=== PATIENT | female | born 1990 ===

== ENCOUNTER 2019-09-16 22:13 | Emergency (ER) | payer OTHER ==
[~2019-09-16] VITALS: Ht 172.7 cm; Wt 65.8 kg
[2019-09-17] MEDS ORDERED: PHENERGAN25 MG PO (02:37)
[2019-09-17] MEDS ORDERED: PEPCID40 MG PO (02:37)
[2019-09-17] MEDS ORDERED: PHENAGIL CH TA1 EACH PO (02:37)
[2019-09-17] MEDS ORDERED: OSEL75CA PO (02:37)
== END 2019-09-17 02:41 ==
LOC: ER 22:13
DX: J06.9 Acute upper respiratory infection, unspecified (principal); R10.13 Epigastric pain; R11.2 Nausea with vomiting, unspecified

== ENCOUNTER 2020-12-09 09:49 | Outpatient (CLI) | payer OTHER ==
[~2020-12-09 09:49] MED LIST: OSEL75CA PO; PEPCID40 MG PO; PHENAGIL CH TA1 EACH PO; PHENERGAN25 MG PO
== END 2020-12-09 09:53 | disposition home or self-care (01) ==
LOC: RAD 09:49
PROVIDERS: ATTEND Specialist
DX: M43.8X4 Other specified deforming dorsopathies, thoracic region (principal); M54.5 Low back pain

== ENCOUNTER 2024-01-02 14:41 | Outpatient (CLI) | payer OTHER | END 2024-01-02 14:52 | disposition home or self-care (01) | LOC: SONOGRAMA 14:41 | PROVIDERS: ATTEND Surgery | DX: R59.0 Localized enlarged lymph nodes (principal); R88.8 Abnormal findings in other body fluids and substances ==

== ENCOUNTER 2024-05-14 22:31 | Emergency (ER) | payer OTHER ==
[~2024-05-14] VITALS: Ht 172.7 cm; Wt 59.0 kg
[2024-05-14] MEDS ORDERED: LEXAPRO5 MG PO (22:47)
[2024-05-14] MEDS ORDERED: KETOROLAC TROMETHAMINE 30 MG VIAL IV ONE (23:45)
[2024-05-14] MEDS ORDERED: FAMOTIDINE/PF 20 MG/2 ML VIAL IV ONE (23:45)
[2024-05-14] MEDS ORDERED: 0.9 % SODIUM CHLORIDE 1,000 ML IV STA (23:51)
[2024-05-14] MEDS ORDERED: KETOROLAC TROMETHAMINE 30 MG VIAL ONE (23:54)
[2024-05-14] MEDS ORDERED: FAMOTIDINE/PF 20 MG/2 ML VIAL ONE (23:54)
[2024-05-15 00:29] LABS: HEMATOCRIT 36.7 % (36.0-45.00); HEMOGLOBIN 12.7 g/dL (12.0-15.00); MEAN CORPUSCULAR HEMOGLOBIN 28.3 pg (27.00-32.0); MEAN CORPUSCULAR HGB CONC 34.6 g/dl (32.0-36.0); PLATELET COUNT 234 K/uL (150-450); RED BLOOD COUNT 4.47 M/uL (4.00-6.00); RED CELL DISTRIBUTION WIDTH 13.7 % (11.5-14.5)
[2024-05-15 00:48] LABS: CALCIUM 9.7 mg/dL (8.5-10.1); CREATININE SERUM 0.85 mg/dL (0.55-1.02); GFR 77.02; POTASSIUM 3.41 mEq/L (3.5-5.1)
[2024-05-15 01:08] LABS: URINE APPEARANCE Clear; URINE BILIRRUBIN Negative (NEGATIVE); URINE BLOOD Negative; URINE COLOR Yellow; URINE GLUCOSE Negative (NEGATIVE); URINE KETONE Trace (NEGATIVE); URINE LEUKOCYTE Negative; URINE NITRATE Negative; URINE PROTEIN Negative (NEGATIVE); URINE UROBILINOGEN 0.2 E.U./dl
[2024-05-15 01:09] LABS: URINE BACTERIA 33.9 uL (0.0-1933); URINE EPITHELIAL CELLS 2.1 uL (0.0-38.8)
[2024-05-15 01:14] LABS: URINE RBC 1.2 uL (0.0-20.8); URINE WBC 0.9 uL (0.0-23.2)
[2024-05-15] MEDS ORDERED: HALOPERIDOL LACTATE 5 MG/ML AMPUL IM STA (01:27)
[2024-05-15] MEDS ORDERED: DIPHENHYDRAMINE HCL 25 MG CAPSULE PO STA (01:27)
[2024-05-15] MEDS ORDERED: DIPHENHYDRAMINE HCL 50 MG/ML VIAL 1ML IM STA (01:31)
[2024-05-15] MEDS ORDERED: DIPHENHYDRAMINE HCL 50 MG/ML VIAL 1ML ONE (01:33)
[2024-05-15] MEDS ORDERED: HALOPERIDOL LACTATE 5 MG/ML AMPUL ONE (01:33)
== END 2024-05-15 03:31 | disposition home or self-care (01) ==
LOC: ER 22:31
PROVIDERS: Emergency Medicine
DX: G43.909 Migraine, unspecified, not intractable, without status migrainosus (principal); R53.1 Weakness; F84.0 Autistic disorder; F41.8 Other specified anxiety disorders; F41.0 Panic disorder [episodic paroxysmal anxiety]; Z20.822 Contact with and (suspected) exposure to COVID-19